=== PATIENT | male | born 2005 | race Two or more races ===

== ENCOUNTER 2025-10-12 00:41 | Emergency (ER) | payer MEDICAID, SELFPAY ==
[2025-10-12 00:42] VITALS: BMI 19.0
[2025-10-12 01:00] VITALS: BP 117/73; PULSE 71; RESP 18; TEMP 36.6; O2SAT 98
--- NOTE | 2025-10-12 01:06 | XR_ITS ---
Examination: CT abdomen and pelvis without contrast. Coronal 3-D reconstructions. Sagittal 2-D reconstructions. Date and time of exam: 10/12/2025 at 1:45 a.m. CTDI: vol (mGy): 4.6 DLP: (mGycm): 243 Clinical indication left flank pain abdominal pain Technique: Axial images of the abdomen have been obtained, 3 mm slice thickness Intravenous contrast material has not been administered. Low dose protocols were performed. One or more of the following dose reduction techniques were used; automated exposure control, adjustment of the mA and/or KV according to patient size, use of iterative reconstruction technique. Findings: All of the visible bones appear essentially normal, the only, it is that there is a broad-based midline disc protrusion of moderate to significant at L4-5. There is also a similar 1 seen at L5-S1. Within the right kidney there are 2 exquisitely tiny medullary calculi which are nonobstructive. Right kidney collecting system and ureter are otherwise normal In the left there is 1 tiny nonobstructive calculus in the medullary portion. No other abnormalities are seen involving the left kidney other than mild definite obstructive dilatation of the left renal collecting system and the entire left ureter. At the left UVJ there is a 2.6 mm diameter obstructing calculus, it appears ready to pop freely into the bladder In all other respects the CT of the abdomen CT of the pelvis are normal, with one exception. That is very significant dilatation of the entire stomach which is packed filled with food IMPRESSION: 1. There is a 2.6 mm diameter calculus at the terminal left ureter at the the UVJ appearing ready to pop free into the bladder. This creates mild but definite obstruction of the ureter and left renal pelvis 2. There are 2 exquisitely tiny nonobstructive calculi in the medullary portion of the right kidney, and one very tiny calculus in the medullary portion of the left kidney. 3 there is significant distention of the entire stomach which is packed full of food. 4. Study otherwise negative
--- NOTE | 2025-10-12 01:06 | PD.EDRME ---
Rapid Medical Screening Exam RME Arrival date/time: 10/12/25 00:41 19M with no significant PMH presents to ED with 1 hour of sudden L flank pain and trouble urinating. Patient dysuria. Chief Complaint: Abdominal Pain Vital signs: Vital Signs Temperature 97.8 F 10/12/25 01:00 Pulse Rate 71 10/12/25 01:00 Respiratory Rate 18 10/12/25 01:00 Blood Pressure 117/73 10/12/25 01:00 Pulse Oximetry (%) 98 10/12/25 01:00 Oxygen Delivery Method Room Air 10/12/25 01:00 Exam: No gross ab or CVA tenderness. Clinical Impression: kidney stone vs UTI vs STD vs constipation
[2025-10-12 01:22] LABS: Basophils # (Auto) 0.1 Thou/mm3 (0.0-0.2); Basophils % (Auto) 1 % (0-2.5); Eosinophils # (Auto) 0.1 Thou/mm3 (0.0-0.5); Eosinophils % (Auto) 2 % (0-10); Hematocrit 39.4 % (41.0-53.0); Hemoglobin 13.5 g/dL (13.5-16.0); Immature Granulocytes Auto 0.01 Thou/mm3 (0.00-0.00); Lymphocytes # (Auto) 1.8 Thou/mm3 (1.0-4.8); Lymphocytes % (Auto) 31 % (10-50); Mean Corpuscular HGB Conc 34.3 g/dl (31.0-37.0); Mean Corpuscular Hemoglobin 29.7 pg (25.0-35.0); Mean Corpuscular Volume 87 fL (80-100); Monocytes # (Auto) 0.5 Thou/mm3 (0.0-0.8); Monocytes % (Auto) 9 % (0-12); Neutrophils # (Auto) 3.2 Thou/mm3 (1.8-7.7); Neutrophils % (Auto) 57 % (37-80); Nucleated Red Blood Cell # 0.00 Thou/mm3 (0.00-0.00); Nucleated Red Blood Cell % 0 /100 WBC (0); Platelet Count 221 Thou/mm3 (140-440); RDW Standard Deviation 37.7 fL (35.1-43.9); Red Blood Count 4.55 Miln/mm3 (4.50-5.90); White Blood Count 5.6 Thou/mm3 (3.8-10.6)
[2025-10-12] MEDS: NAPROXEN 250 MG TABLET 500 MG PO (01:26)
[2025-10-12 01:39] LABS: Alanine Aminotransferase 38 U/L (10-49); Albumin, Serum 4.5 gm/dL (3.5-5.0); Albumin/Globulin Ratio 1.6 (1.2-2.2); Alkaline Phosphatase 64 U/L (46-116); Anion Gap 8 (7-16); Aspartate Amino Transferase 24 U/L (0-34); BUN/Creatinine Ratio 11 Ratio (12-20); Bilirubin,Total 0.6 mg/dL (0.3-1.2); Blood Urea Nitrogen 10 mg/dL (9-23); Calcium 9.5 mg/dL (8.3-10.6); Calcium (Corrected) 9.5 mg/dL (8.5-10.1); Carbon Dioxide 28.5 mMol/L (20.0-31.0); Chloride 107 mMol/L (98-107); Creatinine (Component) 0.9 mg/dL (0.6-1.3); Estimated Creatinine Clearance 104.1 mL/min (>60); Globulin 2.9 gm/dL (2.3-3.5); Glucose 92 mg/dL (74-106); Osmolality,Calculated 283 (275-295); Potassium 4.2 mMol/L (3.4-5.1); Sodium 143 mMol/L (136-145); Total Protein 7.4 gm/dL (5.7-8.2); eGFR > 60 See Note
[2025-10-12 02:12] LABS: Collection Type, Urine Clean Catch
[2025-10-12 02:19] LABS: Bilirubin,Urine Negative (Negative); Blood,Urine 3+ (Negative); Clarity,Urine Clear (Clear/Hazy); Color,Urine Lt-Yellow (Lt Yel-Yel); Culture Indicated,Urine Not Indicated; Glucose, Urine Negative (Negative); Ketones,Urine Negative (Negative); Leukocyte Esterase,Urine Negative (Negative); Nitrite,Urine Negative (Negative); PH,Urine 6.5 (5.0-7.0); Protein,Urine Negative (Neg - Trace); RBC,Urine 433 /hpf (0-3); Specific Gravity,Urine 1.025 (1.001-1.035); Squamous Epithelial Cell,Urine 1 /hpf (0-5); Urobilinogen,Urine Negative mg/dL (0.0-1.0); WBC,Urine 1 /hpf (0-5)
[2025-10-12 02:24] LABS: Amphetamine/Methamp Scrn,U Negative (Negative); Barbiturate Screen,Urine Negative (Negative); Benzodiazepines Screen,Urine Negative (Negative); Benzoylecgonine Screen, Ur Negative (Negative); Fentanyl Screen,Urine Negative (Negative); Opiate Screen,Urine Negative (Negative); THC Screen,Urine Negative (Negative)
--- NOTE | 2025-10-12 02:51 | PRELIM_ITS ---
CT abdomen and pelvis without intravenous or oral contrast. Axial images with coronal and sagittal reconstructions. Clinical history: Left flank pain. Findings: The lung bases are clear. Liver, gallbladder, spleen, adrenal glands and pancreas are unremarkable. Bilateral nonobstructing renal calculi. Mild left hydroureteronephrosis with a 4 mm calculus in the urinary bladder at the left ureterovesicular junction, image 177. No right hydroureteronephrosis. The a ppendix is normal, best seen on image 173. Bowel caliber is normal. The abdominal wall is unremarkable. No free intraperitoneal air or fluid. No acute osseous process. Impression: A 4 mm calculus at the left ureterovesicular junction with mild hydroureteronephrosis. Bilateral nonobstructing renal calculi. Report Electronically Signed By: Clark Meza 10/12/2025 2:50:23 AM [EST]
--- NOTE | 2025-10-12 04:33 | PD.EDMALE ---
ED Male Genitalurinary RME/HPI General Chief complaint: Urogenital-Male Stated complaint: ABD PAIN Time Seen by Provider: 10/12/25 01:41 Arrival date/time: 10/12/25 00:41 RME / HPI RME / HPI Narrative: 10/12/25 00:41 19M with no significant PMH presents to ED with 1 hour of sudden L flank pain and trouble urinating. Patient dysuria. DR. FAN MAIN ED EVALUATION: Patient presents with urinary hesitancy x 24 hours and sudden onset abdominal pain just [employer]. Denies nausea, fever, and diarrhea. Also denies dysuria and hematuria. PMH: Unremarkable PSH: Unremarkable Allergies: NKDA Social: Negative Exam: No gross ab or CVA tenderness. Impression: kidney stone vs UTI vs STD vs constipation Related Data Previous Rx's ?Medication ?Instructions ?Recorded hydrocodone 5 mg-acetaminophen 325 1 tab PO Q8H PRN pain #20 tabs 10/12/25 mg tablet promethazine 12.5 mg tablet 12.5 mg PO TID PRN nausea and 10/12/25 vomiting #18 tabs tamsulosin 0.4 mg capsule 0.4 mg PO QDAY 7 days #7 caps 10/12/25 Allergies Allergy/AdvReac Type Severity Reaction Status Date / Time No Known Allergies Allergy Verified 10/12/25 00:46 Review of Systems Review of Systems Systems Reviewed: All systems reviewed, normal except as documented ED Exam Narrative Physical exam: GEN. APPEARANCE: The patient is alert awake oriented X-3 under no distress, lying down comfortably, does not look ill/toxic. Patient has good eye contact. Patient is cooperative. VITALS: All vitals were reviewed and the pulse ox is 98%, which is normal according to my interpretation HEENT: Normocephalic, atraumatic and nontender. Pupils are equal and reactive. Oral mucosa is moist. NECK: Supple, nontender, no meningismus, no JVD. There is no thyromegaly and no lymphadenopathy. CHEST: Nontender on palpation no deformity and no crepitus. CARDIOVASCULAR: Heart regular rhythm, no murmur or gallop rub or extra beats. LUNGS: Clear to auscultation bilaterally with symmetrical chest rise. No laboring tachypnea or wheezing. No intercostal subcostal retraction. No rales and no rhonchi. ABDOMEN: Soft, flat, localized TTP of LLQ, no guarding or rebound tenderness. There are no abnormal masses palpated. No pulsatile masses or bruits. Active and normal bowel sounds. EXTREMITIES: Normal inspection and palpation. No edema. No cyanosis. Patient is able to move all 4 extremities well SKIN: Warm and dry, no rashes noted. MUSCULOSKELETAL: No lumbar or midline bony tenderness. There is no CVA tenderness. No paraspinal muscle spasm or tenderness. NEURO: Cranial nerves II through XII grossly intact. There are no focal neurologic deficits noted. GCS is 15 PSYCHIATRIC: Patient is in normal mood and affect, cooperative. LYMPHATICS: No major lymphadenopathy noted. Course Quality Measures none Orders Category Date Time Status CT abdomen pelvis wo con Stat Exams 10/12/25 01:06 Taken CBC Stat Lab 10/12/25 01:13 Completed CMP [Comprehensive Metabolic Panel] Stat Lab 10/12/25 01:13 Completed Drug Screen,Urine Stat Lab 10/12/25 02:02 Completed Urinalysis, C/S if Indicated Stat Lab 10/12/25 02:02 Completed Morphine* Inj Med 10/12/25 04:35 Ordered 2 mg IVP Q1H PRN Naproxen [Naprosyn] Med 10/12/25 01:06 Discontinued 500 mg PO X1 ONE Prochlorperazine Inj [Compazine Inj] Med 10/12/25 04:37 Once 2.5 mg IV X1 ONE Vital Signs Vital signs: Vital Signs Temperature 97.8 F 10/12/25 01:00 Pulse Rate 71 10/12/25 01:00 Respiratory Rate 18 10/12/25 01:00 Blood Pressure 117/73 10/12/25 01:00 Pulse Oximetry (%) 98 10/12/25 01:00 Oxygen Delivery Method Room Air 10/12/25 01:00 Urogenital - Male MDM Narrative MDM Narrative:: Scribe Attestation: Mary Jane Simons, karen scribing for and in the presence of Dr. Fan. Provider Notation: Although this document has been carefully reviewed, there may still be some phonetic and other typographical errors. These errors are purely grammatical due to imperfections in the software program and should not be construed in any way to compromise the substance of the patient's medical care during this visit. Patient presents with urinary hesitancy x 24 hours and sudden onset abdominal pain just [employer]. Denies nausea, fever, and diarrhea. Please see PE findings. Laboratory findings, including CBC and serum chemistries, demonstrated normal WBC, no anemia, or thrombocytopenia. Serum chemistries demonstrated normal renal function. UA with hematuria, CT scan of the abdomen/pelvis demonstrates a 4 mm stone to the left UVJ with mild hydroneprhosis. Patient treated with low-dose narcotic analgesics/anti-emetics, and NSAIDS with mild to moderate relief. Initiated Flomax therapy. Will discharge with PO narcotics and anti-emetics. Recommend close F/U with PMD for urology referral. Final diagnoses include ureterolithiasis with hydronephrosis. Patient data External records reviewed:: [facility] [place] previous records (No prior ED records available for review.) Clinical information provided by:: patient Social determinants that could affect healthcare access:: none Patient has the following chronic illnesses:: None reported. How is presenting disease/condition affected by chronic disease/condition?: no chronic disease Evaluation data The following diagnostics were reviewed and interpreted by me:: lab results and radiology exam(s) Lab and/or radiology exams considered but not ordered:: None Interpretation Summary: RADIOLOGY Abdomen/Pelvis CT: Findings: The lung bases are clear. Liver, gallbladder, spleen, adrenal glands and pancreas are unremarkable. Bilateral nonobstructing renal calculi. Mild left hydroureteronephrosis with a 4 mm calculus in the urinary bladder at the left ureterovesicular junction, image 177. No right hydroureteronephrosis. The appendix is normal, best seen on image 173. Bowel caliber is normal. The abdominal wall is unremarkable. No free intraperitoneal air or fluid. No acute osseous process. Impression: A 4 mm calculus at the left ureterovesicular junction with mild hydroureteronephrosis. Bilateral nonobstructing renal calculi. Medications / Prescriptions Medications or Prescriptions considered but not ordered:: None Medication administrations:: Medication Administration History Morphine Sulfate (Morphine Sulf Inj 4 Mg/Ml Vial) 2 mg IVP Q1H PRN PRN Reason: PAIN Prochlorperazine Edisylate (Prochlorperazine Inj 5 Mg/Ml Vial 2 Ml) 2.5 mg IV X1 ONE; Protocol Stop: 10/12/25 04:38 Discontinued Medications Naproxen (Naproxen 250 Mg Tablet) 500 mg PO X1 ONE Stop: 10/12/25 01:07 Last Admin: 10/12/25 01:26 Dose: 500 mg Documented By: CB See above if any. Consultations Consultation(s) initiated? (list below): No Diagnosis Urogenital Male Differential Diagnosis: urinary tract infection, priapism, urethritis, epididymitis and acute retention of urine Most likely diagnosis given after review of the tests above:: Ureterolithiasis with hydronephrosis Admission Indicated Admission indicated?: not indicated Explain why admission is indicated or not indicated:: Patient does not meet admission criteria. Admission Request Was there a request for admission?: No Disposition Plan Disposition Plan: Discharge Discharge Attestation Discharge Attestation: The patient and all family members were given an opportunity to ask questions and understood the discharge instructions. Discharge instructions specifically effects, indications for sooner follow up or return to the emergency department, and the expected course of current diagnosis. Patient condition: Stable Discharge Plan Plan Patient Disposition: HOME (Self Care) Discharge Disposition comment: Stable Prescriptions/Referrals Prescriptions/Med Rec: New hydrocodone-acetaminophen 5-325 mg tablet 1 tab PO Q8H MDD 3 TABS PRN (Reason: pain) Qty: 20 0RF promethazine 12.5 mg tablet 12.5 mg PO TID PRN (Reason: nausea and vomiting) Qty: 18 0RF tamsulosin 0.4 mg capsule 0.4 mg PO QDAY 7 Days Qty: 7 0RF Referrals: No Primary/Family,Physician [Primary Care Provider] - In 1 week Problem List Clinical Impression: Ureterolithiasis, Hydronephrosis Patient/Caregiver Discharge Instructions Print Language: Barbadian Stand Alone Forms: [employer] Award Info., Patient Portal Info Letter
[2025-10-12] MEDS: PROCHLORPERAZINE INJ 5 MG/ML VIAL 2 ML 2.5 MG IM (05:19)
[2025-10-12] MEDS: MORPHINE SULF INJ 4 MG/ML VIAL 2 MG IM (05:19)
[2025-10-12 05:28] VITALS: BP 112/72; PULSE 72; RESP 16; TEMP 36.7; O2SAT 98
== END 2025-10-12 05:29 | disposition home or self-care (01) ==
PROVIDERS: Physician Assistant; Emergency Provider Emergency Medicine
DX: N13.2 Hydronephrosis with renal and ureteral calculous obstruction (principal)
CPT/HCPCS: 36415; 74176; 80053; 80307; 81001; 85025; 96372; 99283; J0780; J2270; A9270